=== PATIENT | female | born 1930 | race Caucasian/White ===

== ENCOUNTER → 2021-03-14 | Outpatient (CLI) | payer MEDICARE ==
[2015-08-24 17:20] VITALS: BP 192/80
[~2021-03-14] MED LIST: IBUP-1027 PO; LOSA25TA PO; SITA1TAB11 PO; [UNRECOGNIZED DRUG - CODE] PO
[2021-03-14 15:59] LABS: BASO % 0 % (0-3); EOS # 0.1 x10^3/uL (0.0-0.7); EOS % 2 % (0-3); HEMATOCRIT 34.5 % (36.0-47.0); HEMOGLOBIN 11.5 g/dL (12.0-15.5); LYMPH # 1.6 x10^3/uL (1.0-4.8); LYMPH % 28 % (24-48); MEAN CORPUSCULAR HEMOGLOBIN 31 pg (25-35); MEAN CORPUSCULAR HGB CONC 33 g/dL (31-37); MEAN CORPUSCULAR VOLUME 94 fL (79-100); MONO # 0.4 x10^3/uL (0.0-1.1); MONO % 7 % (0-9); NEUT # 3.6 x10^3/uL (1.8-7.7); NEUT % 62 % (31-73); PLATELET COUNT 249 x10^3/uL (140-400); RED BLOOD COUNT 3.68 x10^6/uL (3.50-5.40); RED CELL DISTRIBUTION WIDTH 13.9 % (11.5-14.5); WHITE BLOOD COUNT 5.8 x10^3/uL (4.0-11.0)
[2021-03-14 16:30] LABS: FREE T4 1.11 ng/dL (0.76-1.46); THYROID STIM HORMONE (TSH) 1.922 uIU/mL (0.358-3.74)
[2021-03-14 19:54] LABS: PLT ESTIMATE ADEQUATE (ADEQUATE)
[2021-03-15 21:08] LABS: ALBUM 3.8 g/dL (2.9-4.4); ALPHA 1 0.3 g/dL (0.0-0.4); ALPHA 2 0.8 g/dL (0.4-1.0); BETA 1.1 g/dL (0.7-1.3); GAMMA 1.2 g/dL (0.4-1.8); PROTEIN TOTAL 7.1 g/dL (6.0-8.5); SPEP AG RATIO 1.2 (0.7-1.7)
== END ==
LOC: ONCLAB 15:25
PROVIDERS: ATTEND Internal Medicine Hematology & Oncology
DX: D64.9 Anemia, unspecified (principal); E04.1 Nontoxic single thyroid nodule
CPT/HCPCS: 36415; 82525; 82607; 82668; 82728; 82746; 82784; 83010; 83520; 83540; 83550; 83921; 84165; 84439; 84443; 85025; 85045; 86334